=== PATIENT | female | born 1960 | race Asian ===

== ENCOUNTER 2021-03-04 00:52 | Emergency (ER) | payer BC ==
[~2021-03-04] VITALS: Ht 162.6 cm; Wt 74.5 kg
[~2021-03-04 00:52] MED LIST: CYCL-1 PO; FAMO20TA44 PO; OMEP20CA15 PO
[2021-03-04 01:18] VITALS: BP 160/74
[2021-03-04] MEDS ORDERED: meclizine 12.5mg tablet PO ONE ×2 (01:45→01:50)
[2021-03-04] MEDS ORDERED: ondansetron 4mg rapidly disintigrating tab PO ONE (01:45)
[2021-03-04] MEDS ORDERED: MECL-159 PO (02:28)
[2021-03-04] MEDS ORDERED: ONDA4TAB6 PO (02:28)
== END 2021-03-04 02:50 | disposition home or self-care (01) ==
LOC: ER 00:53
DX: R42 Dizziness and giddiness (principal); R11.0 Nausea; H53.8 Other visual disturbances; H55.00 Unspecified nystagmus; I10 Essential (primary) hypertension; Z79.899 Other long term (current) drug therapy
CPT/HCPCS: 70450; 99284; J8597